=== PATIENT | female | born 1980 | race Caucasian/White ===

== ENCOUNTER 2020-05-01 10:41 | Outpatient (CLI) | payer OTHER, SELFPAY ==
[2020-05-01 11:56] LABS: Thyroid Stimulating Hormone 1.77 uIU/mL (0.36-3.74)
[2020-05-04 05:26] LABS: Thyroglobulin 5.1 ng/mL (2.8-40.9); Thyroglobulin Antibodies 80 IU/mL (<=1)
== END 2020-05-01 10:42 | disposition home or self-care (01) ==
LOC: CHSLAB 10:44
PROVIDERS: PCP Nurse Practitioner Family; Visit Provider Nurse Practitioner Family
DX: R76.8 Other specified abnormal immunological findings in serum (principal)
CPT/HCPCS: 36415; 84432; 84443; 86800

== ENCOUNTER 2020-05-17 11:23 | Outpatient (CLI) | payer OTHER, SELFPAY ==
--- NOTE | ~2020-05-17 | XR_ITS ---
EXAMINATION: XR shoulder RT min 2V EXAM DATE: 05/17/2020 12:03 INDICATION: No known recent injury provided at this time. Pain of the right shoulder. TECHNIQUE: The following right shoulder projections obtained: frontal projection with internal rotati on, frontal projection with external rotation, Grashey, and scapular Y view (4+ views). There is no prior study for comparison. FINDINGS: No evidence of right shoulder rotator cuff calcific tendinosis. Unremarkable right lakeisha ohumeral and acromioclavicular joints. There are no acute fractures or dislocations identified. Ther e is no subcutaneous gas. The soft tissue is unremarkable. There are no radiopaque foreign bodies. IMPRESSION: 1. Unremarkable right shoulder exam. Reviewed, dictated and finalized at location B.
== END 2020-05-17 11:24 | disposition home or self-care (01) ==
LOC: CHSIMG 11:27
PROVIDERS: PCP Nurse Practitioner Family; Visit Provider Nurse Practitioner Family
DX: M25.511 Pain in right shoulder (principal)
CPT/HCPCS: 73030

== ENCOUNTER 2020-05-22 15:58 | Outpatient (RCR) | payer OTHER, SELFPAY ==
--- NOTE | 2020-05-30 07:13 | PTOPEVAL ---
Thank you for referring Justyna Chase to [facility]. Please review, sign, date and return this plan of care CAROLYN. I agree with and certify that the following plan of care is medically necessary. Referring Physician Date Admitting Provider: Attending Provider: Chiara Fisher NP Referring Provider: GELA Outpatient Evaluation Start: 05/22/20 16:00 Freq: Status: Active Protocol: Document 05/22/20 16:00 J (Rec: 05/22/20 16:17 [id number]) Therapy Assessment Status Assessment Status Assessment Status Evaluation Evaluation Information Problem Diagnosis R shoulder pain Onset 05/17/20 Additional Evaluation Detail quick dash = 43% functionally declined Subjective Information patient reports she has been Query Text:As Reported By Patient/ having pain in the R shoulder Family and radiation of pain down the arm into the elbow for about 8 weeks. she reports no injury . she reports the pain will come and go. she reports she is L handed. 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 patient reports she has some radiation of pain to the middle finger ocassionally. she reports the pain/radiation is random. Prior Level of Function Comments Additional Prior Level of Function patient reports she is having Comments difficulty sleeping due to the pain/radiation. she reports she is pushing thorugh her daily activities. Pain Assessment Timing of Pain Assessment Timing of Pain Assessment Assessment Pain Scale Pain Scale Used Numeric (1 - 10) Self Report Pain Assessment Right Shoulder(s) Reported Pain Level 0 Pain Description Radiating,Sharp,Shooting Pain Radiation Right Elbow Radicular Pain Location R hand, long finger Pain Frequency Acute,Intermittent Lowest Pain Intensity 0 Greatest Pain Intensity 8 Pain Aggravating Factors Prolonged Position,Other Pain Aggravating Factors Other Pain Aggravating Factors sleeping Pain Score Pain Score 0: Self Report Cervical and Lumbar ROM Cervical ROM Cervical Flexion (0-60) 60 Query Text:Active in Degrees Cervical Extension (0-70) 40 Qu
--- NOTE | 2020-06-19 17:19 | PCPTNOTE ---
06/19/20-pt cancelled apt today secondary to migraine-HM
--- NOTE | 2020-07-16 16:21 | PCPTNOTE ---
07/16/20 - patient has not been to therapy in several months. as of this date, patient will be DC'd from skilled PT services, and all progress towards goals will be taken from patients most recent evaluation/note. LATISHA
== END 2020-06-13 09:37 | disposition home or self-care (01) ==
LOC: CHSPT 15:58
PROVIDERS: PCP Nurse Practitioner Family; Visit Provider Nurse Practitioner Family
DX: M25.511 Pain in right shoulder (principal)
CPT/HCPCS: 97014; 97110; 97161; G0283

== ENCOUNTER 2020-06-07 09:06 | Outpatient (CLI) | payer OTHER, SELFPAY ==
[2020-06-07 09:46] LABS: Alanine Aminotransferase 21 U/L (14-59); Albumin Level 3.8 g/dL (3.4-5.0); Alkaline Phosphatase 55 U/L (46-116); Aspartate Amino Transferase 19 U/L (15-37); Bilirubin Direct 0.1 mg/dL (0-0.2); Bilirubin,Total 0.6 mg/dL (0.00-1.00); Total Protein 7.2 g/dL (6.4-8.2)
== END 2020-06-07 09:07 | disposition home or self-care (01) ==
LOC: CHSLAB 09:08
PROVIDERS: PCP Nurse Practitioner Family; Visit Provider Podiatrist Foot & Ankle Surgery
DX: B35.1 Tinea unguium (principal)
CPT/HCPCS: 36415; 80076

== ENCOUNTER 2020-07-18 08:38 | Outpatient (CLI) | payer OTHER, SELFPAY ==
[2020-07-18 09:37] LABS: Cholesterol 216 mg/dL (0-200); HDL Direct 46 mg/dL (40-60); LDL Cholesterol Calculated 150 mg/dL (<130); Triglycerides 101 mg/dL (0-150)
[2020-07-21 06:48] LABS: FSH 14.1 mIU/mL (***); LH 9.8 mIU/mL (***)
[2020-07-24 13:28] LABS: Vitamin D 25 Hydroxy 45 ng/mL (30-100)
[2020-07-24 18:23] LABS: Estradiol, Ultrasensitive 93 pg/mL
== END 2020-07-18 08:39 | disposition home or self-care (01) ==
LOC: CHSLAB 08:40
PROVIDERS: PCP Nurse Practitioner Family; Visit Provider Internal Medicine Endocrinology, Diabetes & Metabolism
DX: E55.9 Vitamin D deficiency, unspecified (principal); N92.1 Excessive and frequent menstruation with irregular cycle; E78.5 Hyperlipidemia, unspecified
CPT/HCPCS: 36415; 80061; 82306; 82670; 83001; 83002

== ENCOUNTER 2022-06-05 15:02 | Outpatient (CLI) | payer OTHER, SELFPAY ==
[2022-06-05 15:17] LABS: Basophils Absolute Auto 0.06 K/mm3 (0.00-0.10); Basophils Percent Auto 0.9 % (0.0-1.0); Eosinophils Absolute Auto 0.15 K/mm3 (0.02-0.50); Eosinophils Percent Auto 2.1 % (1.0-6.0); Immature Granulocyte Absolute 0.02 K/mm3 (0.00-0.00); Immature Granulocyte Percent A 0.3 % (0.0-0.0); Lymphocytes Absolute Auto 2.35 K/mm3 (1.10-4.50); Lymphocytes Percent Auto 33.5 % (18.0-42.0); Mean Corpuscular HGB Conc 33.3 g/dL (32.0-36.0); Mean Corpuscular Hemoglobin 31.9 pg (27.0-31.0); Mean Corpuscular Volume 95.6 fL (78.0-102.0); Mean Platelet Volume 9.1 fl (9.2-11.8); Monocytes Absolute Auto 0.46 K/mm3 (0.10-0.90); Monocytes Percent Auto 6.6 % (2.0-11.0); Neutrophils Percent Auto 56.6 % (50.0-70.0); Platelet Count Result 217 K/mm3 (150-420); Red Blood Count 4.08 M/mm3 (4.20-5.40); Red Cell Distribution Width 12.2 % (11.6-14.4)
[2022-06-05 15:48] LABS: Alanine Aminotransferase 21 U/L (14-59); Albumin Level 3.9 g/dL (3.4-5.0); Alkaline Phosphatase 63 U/L (46-116); Anion Gap 6 mmol/L (8-16); Aspartate Amino Transferase 13 U/L (15-37); Bilirubin,Total 0.3 mg/dL (0.00-1.00); Blood Urea Nitrogen 8 mg/dL (7-18); Calcium 8.8 mg/dL (8.5-10.1); Carbon Dioxide 30 mmol/L (21-32); Chloride 107 mmol/L (98-108); Cholesterol 218 mg/dL (0-200); Estimated Glomerular Filt Rate > 60; Glucose 87 mg/dL (70-99); HDL Direct 57 mg/dL (40-60); LDL Cholesterol Calculated 141 mg/dL (<130); Osmolality Calculated 293 mOsm/kg (285-295); Potassium 4.3 mmol/L (3.5-5.1); Sodium 143 mmol/L (136-145); Thyroid Stimulating Hormone 0.72 uIU/mL (0.36-3.74); Triglycerides 99 mg/dL (0-150)
[2022-06-10 17:45] LABS: Vitamin D 25 Hydroxy 69 ng/mL (30-100)
== END 2022-06-05 15:03 | disposition home or self-care (01) ==
LOC: CHSLAB 15:04
PROVIDERS: PCP Nurse Practitioner Family; Visit Provider Nurse Practitioner Family
DX: R79.0 Abnormal level of blood mineral (principal); E78.5 Hyperlipidemia, unspecified; R76.8 Other specified abnormal immunological findings in serum; E55.9 Vitamin D deficiency, unspecified
CPT/HCPCS: 36415; 80053; 80061; 82306; 84443; 85025

== ENCOUNTER 2022-11-21 13:11 | Emergency (ER) | payer OTHER, SELFPAY ==
[2022-11-21 13:14] VITALS: BP 119/69; PULSE 74; RESP 20; TEMP 36.7; O2SAT 100
--- NOTE | 2022-11-21 14:43 | ED.FEMALEGU ---
HPI - Female Genitourinary General Chief complaint: Urogenital-Female Stated complaint: poss UTI Time Seen by Provider: 11/21/22 14:35 Source: patient Mode of arrival: ambulatory Limitations: no limitations History of Present Illness HPI Narrative: 41 year old [facility] of UTI symptoms of fevers, low back pain, urgency for the past 3 days duration. Patient reports that she has been taking some Ibuprofen for her symptoms. Patient reports that urine has foul odor. Patient reports no vaginal drainage or itching or any concern for any exposure to STD. MD elicited complaint: dysuria Onset (ago): day(s) (3) Severity scale (1-10): 7 Vaginal discharge: none Treatment prior to arrival: NSAIDs Related Data Home Medications Medication Instructions Recorded Confirmed methylcellulose (laxative) 500 mg 500 mg PO DAILY 10/31/19 06/05/22 tablet (Citrucel) verapamil 120 mg 24 hr 120 mg PO DAILY 10/31/19 06/05/22 capsule,extended release cholecalciferol (vitamin D3) 1,250 5,000 mcg PO DAILY 05/01/20 06/05/22 mcg (50,000 unit) capsule mecobalamin (vitamin B12) 5,000 mcg PO .twice weekly 05/01/20 06/05/22 mcg disintegrating tablet rizatriptan 10 mg tablet 10 mg PO ONCE PRN 07/04/20 06/05/22 aripiprazole 2 mg tablet (Abilify) 2 mg PO DAILY 06/05/22 06/05/22 atomoxetine 40 mg capsule 40 mg PO DAILY 06/05/22 06/05/22 buspirone 15 mg tablet 15 mg PO BID 06/05/22 06/05/22 oxcarbazepine 300 mg tablet 300 mg PO BID 06/05/22 06/05/22 (Trileptal) sertraline 100 mg tablet 200 mg PO DAILY 06/05/22 06/05/22 Allergies Allergy/AdvReac Type Severity Reaction Status Date / Time bupropion AdvReac Severe NIGHT Verified 06/05/22 07:59 TERRORS vilazodone AdvReac Severe SEVERE N/V Verified 06/05/22 07:59 AND DIZZINESS stimulant medications Allergy Intermediate unknown Uncoded 06/05/22 07:59 vybrid Allergy Intermediate unkown Uncoded 06/05/22 07:59 Review of Systems Review of Systems: CONSTITUTIONAL: Reports fever, no chills, or sweats. CARDIOVASCULAR: Denies chest pain, palpitations, or edema. RESPIRATORY: Denies cough or dyspnea. GASTROINTESTINAL: Denies abdominal pain, nausea, vomiting, or diarrhea. GENITOURINARY: Reports dysuria, frequency, urgency. Denies flank pain or hematuria.reports low back pain. SKIN: Denies rash or itching. MUSCULOSKELETAL: low back pain or myalgia. Denies CVA tenderness NEUROLOGIC: Denies headache All systems reviewed & are unremarkable except as noted in HPI and below PMFSH Past Medical History Medical History Anxiety Depression Dysuria Headache, migraine Hyperlipidemia Major depression, recurrent Menometrorrhagia Migraine Obesity Overactive bladder PMDD (premenstrual dysphoric disorder) Thyroglobulin antibody positive Vitamin D deficiency Surgical History Surgical History H/O dilation and curettage History of adenoidectomy (~1991) History of appendectomy History of cholecystectomy (~1989) History of hysteroscopy (~03/2019) History of robot-assisted laparoscopic hysterectomy (10/09/21) RATLH History of tonsillectomy (~1991) History of tonsillectomy History of tubal ligation (~2015) History of tubal ligation Hx of adenoidectomy Family History Family History Other Family history of hypothyroidism Family history of kidney stones Family history of malignant neoplasm Family history of type 2 diabetes mellitus Hypertension Social History Social History Smoking status: Never smoker Alcohol intake: current Alcohol use details: INFREQUENTLY Substance use: never Substance use type: does not use 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
== END 2022-11-21 14:51 | disposition home or self-care (01) ==
PROVIDERS: Emergency Provider Registered Nurse
DX: N39.0 Urinary tract infection, site not specified (principal); E78.5 Hyperlipidemia, unspecified; E66.9 Obesity, unspecified; Z68.28 Body mass index [BMI] 28.0-28.9, adult; E55.9 Vitamin D deficiency, unspecified; F41.9 Anxiety disorder, unspecified; F32.9 Major depressive disorder, single episode, unspecified
CPT/HCPCS: 81003; 87077; 87086; 87186; 99213; G0463

== ENCOUNTER 2022-12-02 10:20 | Outpatient (CLI) | payer OTHER, SELFPAY ==
[2022-12-02 10:59] LABS: Anion Gap 6 mmol/L (8-16); Blood Urea Nitrogen 7 mg/dL (7-17); Calcium 9.2 mg/dL (8.4-10.2); Carbon Dioxide 31 mmol/L (22-30); Chloride 103 mmol/L (98-107); Estimated Glomerular Filt Rate > 60; Glucose 85 mg/dL (65-110); Sodium 140 mmol/L (137-145)
[2022-12-02 11:10] LABS: LDL Cholesterol Direct 134 mg/dL
[2022-12-02 11:42] LABS: Free T4 Free Thyroxine 0.44 ng/mL (0.78-2.19)
[2022-12-06 06:12] LABS: Thyroid Peroxidase Antibodies 3 IU/mL (<9)
[2022-12-07 18:54] LABS: Triiodothyronine T3 Free 3.3 pg/mL (2.3-4.2)
== END 2022-12-02 10:21 | disposition home or self-care (01) ==
LOC: ANHLAB 10:22
PROVIDERS: PCP Family Medicine; Visit Provider Internal Medicine Endocrinology, Diabetes & Metabolism
DX: R76.8 Other specified abnormal immunological findings in serum (principal); E04.9 Nontoxic goiter, unspecified; E55.9 Vitamin D deficiency, unspecified; E78.5 Hyperlipidemia, unspecified
CPT/HCPCS: 36415; 80048; 82306; 83721; 84439; 84443; 84481; 86376

== ENCOUNTER 2023-02-08 08:13 | Outpatient (CLI) | payer OTHER, SELFPAY ==
[2023-02-08 09:21] LABS: Free T3 2.05 pg/mL (2.18-3.98); Free T4 Free Thyroxine 0.63 ng/dL (0.76-1.46); Thyroid Stimulating Hormone 0.89 uIU/mL (0.36-3.74)
== END 2023-02-08 08:14 | disposition home or self-care (01) ==
LOC: CHSLAB 08:14
PROVIDERS: PCP Family Medicine; Visit Provider Internal Medicine Endocrinology, Diabetes & Metabolism
DX: E04.9 Nontoxic goiter, unspecified (principal); R76.8 Other specified abnormal immunological findings in serum
CPT/HCPCS: 36415; 84439; 84443; 84481

== ENCOUNTER 2023-03-11 08:23 | Outpatient (CLI) | payer OTHER, SELFPAY ==
[2023-03-11 09:13] LABS: Free T4 Free Thyroxine 0.89 ng/dL (0.76-1.46); Thyroid Stimulating Hormone 1.06 uIU/mL (0.36-3.74)
== END 2023-03-11 08:24 | disposition home or self-care (01) ==
LOC: CHSLAB 08:25
PROVIDERS: PCP Family Medicine; Visit Provider Internal Medicine Endocrinology, Diabetes & Metabolism
DX: R79.89 Other specified abnormal findings of blood chemistry (principal); R76.8 Other specified abnormal immunological findings in serum
CPT/HCPCS: 36415; 84439; 84443

== ENCOUNTER 2023-04-01 11:39 | Outpatient (NON) | payer OTHER, SELFPAY | END 2023-04-01 11:40 | disposition home or self-care (01) | LOC: CHSLAB 11:40 | PROVIDERS: Visit Provider Nurse Practitioner Family | DX: D22.5 Melanocytic nevi of trunk (principal) | CPT/HCPCS: 88305 ==

== ENCOUNTER 2023-11-08 09:38 | Outpatient (CLI) | payer OTHER, SELFPAY ==
[2023-11-08 11:06] LABS: Free T4 Free Thyroxine 0.75 ng/dL (0.76-1.46); Iron 63 ug/dL (50-170); Magnesium 1.9 mg/dL (1.8-2.4); Thyroid Stimulating Hormone 1.46 uIU/mL (0.36-3.74); Vitamin B12 442 pg/mL (193-986)
[2023-11-11 10:43] LABS: Vitamin D 25 Hydroxy 61 ng/mL (30-100)
== END 2023-11-08 09:39 | disposition home or self-care (01) ==
LOC: CHSLAB 09:39
PROVIDERS: PCP Nurse Practitioner Family; Visit Provider Nurse Practitioner Family
DX: E55.9 Vitamin D deficiency, unspecified (principal); R79.0 Abnormal level of blood mineral; D64.9 Anemia, unspecified; M79.669 Pain in unspecified lower leg; E53.8 Deficiency of other specified B group vitamins; E03.9 Hypothyroidism, unspecified
CPT/HCPCS: 36415; 82306; 82607; 83540; 83735; 84439; 84443

== ENCOUNTER 2024-03-30 14:52 | Outpatient (CLI) | payer OTHER, SELFPAY ==
--- NOTE | 2024-03-30 15:12 | ECG_ITS ---
SEE SCANNED COPY FOR CONFIRMED REPORT MTDD
[2024-03-30 15:13] LABS: Basophils Absolute Auto 0.05 K/mm3 (0.00-0.10); Basophils Percent Auto 0.7 % (0.0-1.0); Eosinophils Absolute Auto 0.17 K/mm3 (0.02-0.50); Eosinophils Percent Auto 2.4 % (1.0-6.0); Hematocrit 39.7 % (35.0-49.0); Hemoglobin 13.5 g/dL (12.0-15.0); Immature Granulocyte Absolute 0.02 K/mm3 (0.00-0.00); Immature Granulocyte Percent A 0.3 % (0.0-0.0); Lymphocytes Absolute Auto 2.68 K/mm3 (1.10-4.50); Lymphocytes Percent Auto 37.3 % (18.0-42.0); Mean Corpuscular Hemoglobin 30.8 pg (27.0-31.0); Mean Corpuscular Volume 90.6 fL (78.0-102.0); Mean Platelet Volume 8.8 fl (9.2-11.8); Monocytes Absolute Auto 0.43 K/mm3 (0.10-0.90); Neutrophils Absolute Auto 3.83 K/mm3 (1.70-7.20); Neutrophils Percent Auto 53.3 % (50.0-70.0); Platelet Count Result 230 K/mm3 (150-420); Red Blood Count 4.38 M/mm3 (4.20-5.40); Red Cell Distribution Width 11.9 % (11.6-14.4); White Blood Count 7.2 K/mm3 (4.8-10.8)
[2024-03-30 16:04] LABS: Sodium 143 mmol/L (136-145)
[2024-03-30 16:05] LABS: Alanine Aminotransferase 31 U/L (14-59); Alkaline Phosphatase 87 U/L (46-116); Anion Gap 7 mmol/L (4-12); Aspartate Amino Transferase 22 U/L (15-37); Bilirubin,Total 0.6 mg/dL (0.00-1.00); Blood Urea Nitrogen 8 mg/dL (7-18); Calcium 9.2 mg/dL (8.5-10.1); Carbon Dioxide 32 mmol/L (21-32); Chloride 104 mmol/L (98-108); Estimated Glomerular Filt Rate > 60; Ferritin 57 ng/mL (8-252); Free T4 Free Thyroxine 0.87 ng/dL (0.76-1.46); Glucose 90 mg/dL (70-99); Iron 78 ug/dL (50-170); Osmolality Calculated 294 mOsm/kg (285-295); Thyroid Stimulating Hormone 2.16 uIU/mL (0.36-3.74); Total Protein 7.3 g/dL (6.4-8.2)
[2024-04-01 03:23] LABS: Vitamin D 25 Hydroxy 71 ng/mL (30-100)
== END 2024-03-30 14:53 | disposition home or self-care (01) ==
PROVIDERS: PCP Nurse Practitioner Family; Visit Provider Nurse Practitioner Family
DX: E55.9 Vitamin D deficiency, unspecified (principal); R79.0 Abnormal level of blood mineral; D64.9 Anemia, unspecified; R00.0 Tachycardia, unspecified; Z79.899 Other long term (current) drug therapy
CPT/HCPCS: 36415; 80053; 82306; 82728; 83540; 83735; 84439; 84443; 85025; 93005

== ENCOUNTER 2024-04-04 13:59 | Outpatient (CLI) | payer OTHER, SELFPAY ==
--- NOTE | 2024-04-10 07:51 | WPDHOLTEREM ---
Holter/Event Monitor Holter/Event Monitor Date of procedure: 04/04/24 Holter/Event Procedure: 48 Hr Holter Monitor Indications: Tachycardia Conclusion: 1. 48 hour holter monitor on 04/04/24. 2. Underlying rhythm is sinus rhythm. HR range 55-141 bpm; average HR 83 bpm. HR at 141 bpm was at 08:10. 3. There are 5 premature supraventricular complexes. No supraventricular tachycardia. 4. There are 3 premature ventricular complexes. No ventricular tachycardia. 5. No sinoatrial or atrioventricular blocks. No significant pauses greater than 2 seconds. 6. Patient reports symptoms of heart pounding, heart racing, which demonstrate sinus rhythm, HR range 71-98 bpm.
== END 2024-04-04 14:00 | disposition home or self-care (01) ==
LOC: CHSCARD 14:00
PROVIDERS: PCP Nurse Practitioner Family; Visit Provider Nurse Practitioner Family
DX: R00.0 Tachycardia, unspecified (principal)
CPT/HCPCS: 93225; 93226

== ENCOUNTER 2024-05-10 07:23 | Day surgery (SDC) | payer OTHER, SELFPAY ==
[2024-04-10 08:26] VITALS: BMI 30.9
[2024-05-03 11:22] VITALS: BMI 29.8
[2024-05-10 08:47] VITALS: BP 106/73; PULSE 70; RESP 16; TEMP 36.6; O2SAT 99
[2024-05-10] MEDS: LACTATED RINGERS 1,000 ML 150 ML IV CONT (08:48)
--- NOTE | 2024-05-10 09:17 | WPDANESEPPF ---
Anes - Initial Pre Proc Eval Procedure: Operation Date: 05/10/24 10:00 Proposed Procedures p Esophagogastroduodenoscopy - Marek Michele MD Date/Time: 05/10/24 09:17 Surgeon: Marek Michele MD Pre Op Diagnosis: GERD w/o esophagitis Patient Data Age: 43 Gender: F Height: 1.7 m Weight: 90.7 kg Last Vital Signs Temp 36.6 C 05/10/24 08:47 Pulse 70 05/10/24 08:47 Resp 16 05/10/24 08:47 BP 106/73 05/10/24 08:47 Pulse Ox 99 05/10/24 08:47 O2 Del Method Room Air 05/10/24 08:47 Allergies Allergy/AdvReac Type Severity Reaction Status Date / Time benzonatate Allergy Mild Cough Verified 05/10/24 08:45 [From Rola Curtis] bupropion AdvReac Severe NIGHT Verified 05/10/24 08:45 TERRORS vilazodone AdvReac Severe SEVERE N/V Verified 05/10/24 08:45 AND DIZZINESS stimulant medications Allergy Intermediate unknown Uncoded 05/10/24 08:45 vybrid Allergy Intermediate unkown Uncoded 05/10/24 08:45 Home Medications Medication Instructions Recorded Confirmed Type methylcellulose (laxative) 500 mg 500 mg PO DAILY 10/31/19 05/10/24 History tablet (Citrucel) verapamil 120 mg 24 hr 120 mg PO DAILY 10/31/19 05/10/24 History capsule,extended release mecobalamin (vitamin B12) 5,000 5,000 mcg PO .twice weekly 05/01/20 05/10/24 History mcg disintegrating tablet cholecalciferol (vitamin D3) 125 125 mcg PO DAILY 12/02/22 05/10/24 History mcg (5,000 unit) capsule buspirone 30 mg tablet 30 mg PO BID 03/30/24 05/10/24 History Lactobacillus 1 cap PO DAILY 05/03/24 05/10/24 History acidophilus-Bifidobac.animalis 2.5 billion cell capsule (Daily Probiotic) oxybutynin chloride 10 mg 10 mg PO DAILY 05/03/24 05/10/24 History tablet,extended release 24 hr pantoprazole 40 mg tablet,delayed 40 mg PO HS 05/03/24 05/10/24 History release sertraline 100 mg tablet 100 mg PO DAILY 05/03/24 05/10/24 History Patient hx anesthesia problems: none Family hx anesthesia problems: none Results Review: All pre-operative results and documents have been reviewed as part of the pre-operative evaluation. [facility] Past Medical History Medical History Anxiety Depression Dysuria GERD (gastroesophageal reflux disease) Headache, migraine Hyperlipidemia Major depression, recurrent Menometrorrhagia Migraine Obesity Overactive bladder PMDD (premenstrual dysphoric disorder) Screening mammogram, encounter for Thyroglobulin antibody positive Vitamin D deficiency Surgical History Surgical History H/O dilation and curettage History of adenoidectomy (~1991) History of appendectomy History of cholecystectomy (~1989) History of hysteroscopy (~03/2019) History of robot-assisted laparoscopic hysterectomy (10/09/21) RATLH History of tonsillectomy (~1991) History of tonsillectomy History of tubal ligation (~2015) History of tubal ligation Hx of adenoidectomy Family History Family History Other Family history of hypothyroidism Family history of kidney stones Family history of malignant neoplasm Family history of type 2 diabetes mellitus Hypertension Social History Social History Smoking status: Current every day smoker Tobacco type: e-cigarettes/vaping Second hand tobacco smoke exposure: No Alcohol intake: current Drinks per week: 2 Alcohol use details: INFREQUENTLY Substance use: current Substance use type: marijuana Other substance usage details: 6 x a week Last use: Nightly Do You Feel Safe in your Home?: Yes Lack of Transportation: No Lack of Food: Never True Current Housing: I Have Housing Concerned About Future Housing: No Difficulty Paying Gas/Electric Bills: No Difficulty Paying for Meds: No Currently Unemployed:
--- NOTE | 2024-05-10 09:23 | PM.HPGS ---
History of Present Illness History of Present Illness Consent: Risks, benefits, and alternatives have been discussed and questions answered. Patient agrees to proceed with procedure. Chief complaint: GERD w/o esophagitis Narrative: Justyna Chase is a 43 year old female referred for EGD. Patient has a long history of heartburn. For the last 9 months has had regurgitation with substernal burning and discomfort. This improves when she takes pantoprazole. It turns when she discontinues the medication. Patient is denies any bleeding. She has had no weight loss. Patient denies any bleeding.. Family history is noncontributory. Review of Systems Review of Systems: All systems reviewed & are unremarkable except as noted in HPI and below PMFSH Past Medical History Medical History Anxiety Depression Dysuria GERD (gastroesophageal reflux disease) Headache, migraine Hyperlipidemia Major depression, recurrent Menometrorrhagia Migraine Obesity Overactive bladder PMDD (premenstrual dysphoric disorder) Screening mammogram, encounter for Thyroglobulin antibody positive Vitamin D deficiency Surgical History Surgical History H/O dilation and curettage History of adenoidectomy (~1991) History of appendectomy History of cholecystectomy (~1989) History of hysteroscopy (~03/2019) History of robot-assisted laparoscopic hysterectomy (10/09/21) RATLH History of tonsillectomy (~1991) History of tonsillectomy History of tubal ligation (~2015) History of tubal ligation Hx of adenoidectomy Family History Family History Other Family history of hypothyroidism Family history of kidney stones Family history of malignant neoplasm Family history of type 2 diabetes mellitus Hypertension Social History Social History Smoking status: Current every day smoker Tobacco type: e-cigarettes/vaping Second hand tobacco smoke exposure: No Alcohol intake: current Drinks per week: 2 Alcohol use details: INFREQUENTLY Substance use: current Substance use type: marijuana Other substance usage details: 6 x a week Last use: Nightly Do You Feel Safe in your Home?: Yes Lack of Transportation: No Lack of Food: Never True Current Housing: I Have Housing Concerned About Future Housing: No Difficulty Paying Gas/Electric Bills: No Difficulty Paying for Meds: No Currently Unemployed: No Education: Master's Degree or Higher Difficulty w/ Childcare or Family Care: No Living arrangements: with family Additional living arrangements comments: Occupation/Education: occupation Additional occupation/education comments: [employer] Gender identity (if verbalized by the patient): Female Sexual Orientation (if Verbalized by the Patient): Straight or Heterosexual Spiritual care concerns: No Meds Home Medications and Allergies Home Medications Medication Instructions Recorded Confirmed Type methylcellulose (laxative) 500 mg 500 mg PO DAILY 10/31/19 05/10/24 History tablet (Citrucel) verapamil 120 mg 24 hr 120 mg PO DAILY 10/31/19 05/10/24 History capsule,extended release mecobalamin (vitamin B12) 5,000 5,000 mcg PO .twice weekly 05/01/20 05/10/24 History mcg disintegrating tablet cholecalciferol (vitamin D3) 125 125 mcg PO DAILY 12/02/22 05/10/24 History mcg (5,000 unit) capsule buspirone 30 mg tablet 30 mg PO BID 03/30/24 05/10/24 History Lactobacillus 1 cap PO DAILY 05/03/24 05/10/24 History acidophilus-Bifidobac.animalis 2.5 billion cell capsule (Daily Probiotic) oxybutynin chloride 10 mg 10 mg PO DAILY 05/03/24 05/10/24 History tablet,extended release 24 hr pantoprazole 40 mg tablet,delayed 40 mg PO HS 05/03/24 05/10/24 History release
[2024-05-10 10:20] VITALS: BP 92/58; PULSE 67; RESP 14; O2SAT 99
[2024-05-10 10:30] VITALS: BP 92/66; PULSE 77; RESP 16; O2SAT 99
--- NOTE | 2024-05-10 10:35 | WPDANESPN ---
Anes - Prog Note Post-Op Date/Time: 05/10/24 10:35 Cardiovascular status: normal Respiratory status: normal Airway patency: baseline Mental status: baseline Post-Op hydration status: normal Vital Signs: Last Vital Signs Temp 36.6 C 05/10/24 08:47 Pulse 77 05/10/24 10:30 Resp 16 05/10/24 10:30 BP 92/66 L 05/10/24 10:30 Pulse Ox 99 05/10/24 10:30 O2 Del Method Room Air 05/10/24 10:30 Pain Score (VAS): 0/10 I/O: Intake & Output 05/09/24 05/10/24 05/10/24 23:59 07:59 15:59 Intake Total 300 Balance 300 Patient Feedback: Patient satisfied with anesthetic care.
[2024-05-10 10:40] VITALS: BP 95/68; PULSE 65; RESP 16; O2SAT 100
== END 2024-05-10 10:52 | disposition home or self-care (01) ==
PROVIDERS: PCP Nurse Practitioner Family; Visit Provider Internal Medicine Gastroenterology
PROC: 0DJ08ZZ Inspection of Upper Intestinal Tract, Via Natural or Artificial Opening Endoscopic (ICD-10-PCS; CPT 43235; principal; 2024-05-10 10:00)
DX: K21.9 Gastro-esophageal reflux disease without esophagitis (principal)
CPT/HCPCS: 43239

== ENCOUNTER 2024-06-12 12:31 | Outpatient (CLI) | payer OTHER, SELFPAY ==
--- NOTE | ~2024-06-12 | MM_ITS ---
EXAMINATION: MM screening lelia BI w eric HISTORY: Screening TECHNIQUE: Craniocaudal and mediolateral oblique 3-D tomosynthesis images were obtained and synthetic 2-D images were generated. CAD analysis was submitted and interpreted. COMPARISON: No prior mammogram is available for comparison at this institution. BREAST PARENCHYMAL COMPOSITION: Dense: The breasts are extremely dense, which lowers the sensitivity of mammography. FINDINGS: There is no evidence of suspicious mass, calcification, or architectural distortion to sugg est malignancy in either breast. There has been no suspicious interval change. IMPRESSION: 1. No mammographic evidence of malignancy. 2. Recommend routine screening mammography in one year. BI-RADS Category 1: Negative Reviewed, dictated and finalized at location B.
== END 2024-06-12 12:32 ==
LOC: MICIMG 12:32
PROVIDERS: PCP Obstetrics & Gynecology; Visit Provider Obstetrics & Gynecology
DX: Z12.31 Encounter for screening mammogram for malignant neoplasm of breast (principal)
CPT/HCPCS: 77063; 77067

== ENCOUNTER 2024-06-26 02:57 | Emergency (ER) | payer OTHER, SELFPAY ==
--- NOTE | ~2024-06-26 | CT_ITS ---
Non-contrast CT scan of the Abdomen and Pelvis Clinical indication: Bilateral flank pain Technique: 2.5 mm axial scans were obtained through the abdomen and pelvis without intravenous or or al contrast. Dose reduction technique was used on this scan by utilizing automated exposure control a nd iterative reconstruction technique. The dose-length product (DLP) was 679.03 mGy-cm. Findings: Images through the lung bases reveal minimal pleural fluid bilaterally. There is no evidence of renal or ureteral calculi. The kidneys and the ureters are nondilated. Possib le mild asymmetric right perinephric stranding. The liver, spleen, pancreas, gallbladder, and adrenals appear normal. There is no aortic aneurysm. There is no evidence of bowel obstruction. Images through the pelvis were performed. There is no evidence of ascites or lymphadenopathy. Urinary bladder unremarkable. No pelvic mass seen. Impression: Possible mild asymmetric right perinephric stranding. Consider recently passed stone. If there is cli nical concern for pyelonephritis, consider urinalysis and/or contrast-enhanced CT scan. Reviewed, dictated and finalized at [facility]. Impression: Possible mild asymmetric right perinephric stranding. Consider recently passed stone. If there is clinical concern for pyelonephritis, consider urinalysis and /or contrast-enhanced CT scan.
[2024-06-26 02:58] VITALS: BP 102/71; PULSE 117; RESP 18; TEMP 36.3; O2SAT 99
--- NOTE | 2024-06-26 03:13 | ED.ABDPAIN ---
HPI - Abdominal Pain General Chief Complaint: Urogenital-Female Stated Complaint: right sided flank & back pain Time Seen by Provider: 06/26/24 03:13 Source: patient Mode of arrival: ambulatory Limitations: no limitations History of Present Illness HPI narrative: Patient is a 43-year-old female with some right greater than left lower back pain with radiation to the front abdominal pain. This started yesterday. She had a similar event in the past which turned out to be a kidney infection. She has been running a fever. MD elicited complaint: abdominal pain Pertinent past history: past UTI ( Pyelonephritis) Onset (ago): day(s) (2) Pain Consistency: constant Location: RLQ, LLQ and other ( right greater than left lower back) Severity: moderate Pain scale (0-10): 5 Quality: sharp Radiation: bilateral flank Migration to: no migration Exacerbating factors: nothing Relieving factors: nothing Context: confirms history of similar episodes Associated symptoms: nausea and fever Treatments prior to arrival: NSAIDs Related Data Home Medications Medication Instructions Recorded Confirmed methylcellulose (laxative) 500 mg 500 mg PO DAILY 10/31/19 06/26/24 tablet (Citrucel) mecobalamin (vitamin B12) 5,000 5,000 mcg PO .twice weekly 05/01/20 06/26/24 mcg disintegrating tablet cholecalciferol (vitamin D3) 125 125 mcg PO DAILY 12/02/22 06/26/24 mcg (5,000 unit) capsule buspirone 30 mg tablet 30 mg PO BID 03/30/24 06/26/24 Lactobacillus 1 cap PO DAILY 05/03/24 06/26/24 acidophilus-Bifidobac.animalis 2.5 billion cell capsule (Daily Probiotic) oxybutynin chloride 10 mg 10 mg PO DAILY 05/03/24 06/26/24 tablet,extended release 24 hr sertraline 100 mg tablet 100 mg PO DAILY 05/03/24 06/26/24 famotidine 20 mg tablet 20 mg PO BID 06/26/24 06/26/24 sertraline 50 mg tablet 50 mg PO DAILY 06/26/24 06/26/24 trazodone 50 mg tablet 50 mg PO HS 06/26/24 06/26/24 verapamil 120 mg 24 hr 120 mg PO DAILY 06/26/24 06/26/24 capsule,extended release Allergies Allergy/AdvReac Type Severity Reaction Status Date / Time benzonatate Allergy Mild Cough Verified 05/10/24 08:45 [From Rola Curtis] bupropion AdvReac Severe NIGHT Verified 05/10/24 08:45 TERRORS vilazodone AdvReac Severe SEVERE N/V Verified 05/10/24 08:45 AND DIZZINESS stimulant medications Allergy Intermediate unknown Uncoded 05/10/24 08:45 vybrid Allergy Intermediate unkown Uncoded 05/10/24 08:45 Review of Systems Review of Systems: All systems reviewed & are unremarkable except as noted in HPI and below Constitutional: Constitutional: Reports no additional constitutional complaints Eyes: Eyes: Reports no additional eye complaints ENT: Reports system reviewed and no additional complaints, except as documented Cardiovascular: Cardiovascular: Reports no additional cardiovascular complaints Respiratory: Respiratory: Reports no additional respiratory complaints Gastrointestinal: Gastrointestinal: Reports no additional gastrointestinal complaints Genitourinary: Genitourinary: Reports no additional female genitourinary complaints Musculoskeletal: Musculoskeletal: Reports no additional musculoskeletal complaints Integumentary/Breasts: Skin/Breast: Reports system reviewed and no additional complaints, except as docu Neurologic: Reports system reviewed and no additional complaints, except as documented Psychiatric: Psychiatric: Reports no additional psychiatric complaints Endocrine: Endocrine: Reports no additional endocrine complaints Hematologic/Lymphatic: Hematologic/Lymphatic: Reports no additional hematologic/lymphatic complaints Allergic/Immunologic: Allergic/Immunologic: Reports no additional allergic/immunologic complaints [facility] Past Medical History Medical History Anxiety Depression Dysuria GERD (gastroesophageal reflux disease) Headache, migraine Hyperlipidemia Major
[2024-06-26 03:31] LABS: Add Urine Microscopic? YES; Bilirubin Urine Negative (Negative); Blood Urine 2+ (Negative); Color Urine Light Yellow (Yellow); Glucose Urine UA Negative (Negative); Ketones Urine Trace (Negative); Leukocyte Esterase Ur 3+ LEU/UL (Negative); Nitrate Urine Positive (Negative); Protein Urine 1+ (Negative)
[2024-06-26 03:32] LABS: Pregnancy On Board Control Positive; Urine Pregnancy Test Negative
[2024-06-26 03:39] LABS: Appearance Urine Turbid (Clear); RBC Urine 21-50 /hpf (0-2); Squamous Epithelial Cell Urine Many /hpf (Few); WBC Clumps Urine Present /hpf; WBC Urine 51-75 /hpf (0-3)
[2024-06-26 03:40] LABS: Bacteria Urine 4+ /hpf; Mucus Urine Heavy /lpf
--- NOTE | 2024-06-26 04:00 | PC.NURSE ---
Explained wait times for results to pt. Pt has no c/o at this time, lights dimmed, resting, call doyle at pt side.
[2024-06-26 04:47] LABS: Basophils Absolute Auto 0.03 K/mm3 (0.00-0.10); Basophils Percent Auto 0.3 % (0.0-1.0); Eosinophils Absolute Auto 0.03 K/mm3 (0.02-0.50); Eosinophils Percent Auto 0.3 % (1.0-6.0); Hematocrit 36.4 % (35.0-49.0); Hemoglobin 12.7 g/dL (12.0-15.0); Immature Granulocyte Absolute 0.05 K/mm3 (0.00-0.00); Immature Granulocyte Percent A 0.5 % (0.0-0.0); Lymphocytes Absolute Auto 1.19 K/mm3 (1.10-4.50); Mean Corpuscular HGB Conc 34.9 g/dL (32-36); Mean Corpuscular Hemoglobin 31.4 pg (27.0-31.0); Mean Corpuscular Volume 89.9 fL (78.0-102.0); Mean Platelet Volume 9.5 fl (9.2-11.8); Monocytes Percent Auto 8.3 % (2.0-11.0); Neutrophils Absolute Auto 8.66 K/mm3 (1.70-7.20); Neutrophils Percent Auto 79.6 % (50.0-70.0); Platelet Count Result 217 K/mm3 (150-420); Red Blood Count 4.05 M/mm3 (4.20-5.40); Red Cell Distribution Width 11.5 % (11.6-14.4); White Blood Count 10.9 K/mm3 (4.8-10.8)
[2024-06-26 05:00] VITALS: BP 110/65; PULSE 75; RESP 16; O2SAT 95
[2024-06-26 05:37] LABS: Lactic Acid Reflex 1.1 mmol/L (0.7-2.0)
[2024-06-26 05:39] LABS: Alanine Aminotransferase 13 U/L (6-35); Albumin Level 4.3 g/dL (3.5-5.1); Alkaline Phosphatase 90 U/L (38-126); Anion Gap 8 mmol/L (4-12); Aspartate Amino Transferase 27 U/L (14-36); Bilirubin,Total 0.7 mg/dL (0.2-1.3); Blood Urea Nitrogen 11 mg/dL (7-17); Carbon Dioxide 30 mmol/L (22-30); Chloride 98 mmol/L (98-107); Estimated CRCL calculation 91 ml/min; Estimated Glomerular Filt Rate > 60; Glucose 105 mg/dL (65-110); Lipase 69 U/L (23-300); Osmolality Calculated 281 mOsm/kg (285-295); Potassium 3.4 mmol/L (3.4-5.0); Sodium 136 mmol/L (137-145)
[2024-06-26] MEDS: cefTRIAXone 1 GM, LIDOCAINE HCL 1% LOCAL INJ 2.1 ML IM (05:58)
[2024-06-26] MEDS: ACETAMINOPHEN 500 MG TABLET 1000 MG PO (06:02)
[2024-06-26 06:24] VITALS: BP 99/64; PULSE 85; RESP 18; TEMP 37.2; O2SAT 96
--- NOTE | 2024-06-28 17:04 | PC.NURSE ---
PRELIMINARY URINE CULTURE RESULTS: GRAM NEGATIVE BACILLI ISOLATED, GREATER THAN 100,000 CFU/ML. PER DR LAWSON, TO AWAIT C&S.
--- NOTE | 2024-06-29 12:21 | PC.NURSE ---
Final urine culture report, Escherichia coli, Patient discharged on Levofloxacin, culture susceptible. no further action or change in medication needed at this time Per. Dr. Tran.
--- NOTE | 2024-07-02 13:43 | PC.NURSE ---
final blood cultures x2 reviewed. no growth after 5 days. no change in plan of care
== END 2024-06-26 06:24 | disposition home or self-care (01) ==
PROVIDERS: Emergency Provider Emergency Medicine; PCP Nurse Practitioner Family
DX: N12 Tubulo-interstitial nephritis, not specified as acute or chronic (principal); E78.5 Hyperlipidemia, unspecified; F17.290 Nicotine dependence, other tobacco product, uncomplicated; Z79.899 Other long term (current) drug therapy
CPT/HCPCS: 36415; 74176; 80053; 81001; 81025; 83605; 83690; 85025; 87040; 87077; 87086; 87088; 87186; 96372; 99284; J0696

== ENCOUNTER 2024-08-03 15:03 | Outpatient (NON) | payer OTHER, SELFPAY ==
[2024-08-03 15:43] LABS: Appearance Urine Sl Cloudy (Clear); Blood Urine 1+ (Negative); Color Urine Yellow (Yellow); Glucose Urine UA Negative (Negative); Ketones Urine Negative (Negative); Nitrate Urine Positive (Negative); Protein Urine Negative (Negative)
[2024-08-03 15:44] LABS: Add Urine Microscopic? YES; Bacteria Urine 4+ /hpf; Bilirubin Urine Negative (Negative); Leukocyte Esterase Ur 2+ LEU/UL (Negative); RBC Urine 0-2 /hpf (0-2); Squamous Epithelial Cell Urine Rare /hpf (Few); Urobilinogen Urine Negative mg/dL (0.2-1.0)
== END 2024-08-03 15:04 | disposition home or self-care (01) ==
LOC: CHSLAB 15:05
PROVIDERS: PCP Nurse Practitioner Family; Visit Provider Nurse Practitioner Family
DX: Z87.898 Personal history of other specified conditions (principal)
CPT/HCPCS: 81001; 87077; 87086; 87088; 87186

== ENCOUNTER 2025-08-17 08:30 | Outpatient (CLI) | payer OTHER, SELFPAY ==
--- OUTSIDE RECORDS SUMMARY | 2025-08-17 08:33 | XMS_ITS | Clinical Summary ---
Author Organization [facility] Address [address] [place] [address] Phone Care Team Providers Care Patrol Driver Name Role Phone Chiara Fisher SANG Primary Care Provider [phone] Allergies No known active allergies Medications Sertraline HCl (ZOLOFT PO) Take by mouth. Active oxybutynin (DITROPAN-XL) 10 MG TABLET SR 24 HR Take 10 mg by mouth daily. Active VERAPAMIL HCL PO Take by mouth. Active OXCARBAZEPINE PO Take by mouth. Active ondansetron (ZOFRAN-ODT) 4 MG TABLET DISPERSIBLEIndic ations:Nausea Take 1 Tab by mouth every 8 hours as needed for Nausea - 1st line. 10 Tab 10/18/2020 Active promethazine-dex tromethorphan (PROMETHAZINE-DM ) 6.25-15 MG/5ML SyrupIndications :Cough Take 5 mL by mouth every 4 hours as needed for Cough. 240 mL 10/18/2020 Active Active Problems No known active problems Social History Tobacco Use Types Packs/Day Years Used Date Smoking Tobacco: Never Smokeless Tobacco: Never Comments No Sex and Gender Information Value Date Recorded Sex Assigned at Not on file Legal Sex Female 9:11 AM [employer] Gender Identity Not on file Sexual Orientation Not on file Last Filed Vital Signs Vital Sign Reading Time Taken Comments Blood Pressure 124/80 10/18/2020 10:43 AM [employer] Pulse 89 10/18/2020 10:43 AM [employer] Temperature 37.3 C (99.1 F) 10/18/2020 10:43 AM [employer] Respiratory Rate 16 10/18/2020 10:43 AM [employer] WORK[employer] Oxygen Saturation 98% 10/18/2020 10:43 AM [employer] Inhaled Oxygen Concentration - - Weight 95.3 kg (210 lb) 10/18/2020 10:43 AM [employer] Height - - Body Mass Index - - Plan of Treatment Health Maintenance Due Date Last Done Comments Hepatitis C Virus (HCV) Screening 1981 Hepatitis B Immunization (1 of 3 - 19+ 3-dose series) 2000 Pap Smear 2002 Human Papillomavirus (HPV) Immunization (1 - 3-dose SCDM series) 2008 Cervical Cancer Screening (CCS) 2011 HPV/Cotest 2011 Influenza Immunization (#1) 2025 SARS-COV-2 Immunization (3 - 2024- season) 2025 11/05/2021, 10/14/2021 Respiratory Syncytial Virus (RSV) Immunization (Adult) (1 - 1-dose 75+ series) 2056 DTaP/Tdap/Td Immunization Discontinued 2008, 02/26/1987 TdaP Immunization Completed 12/18/2008 Meningococcal Immunization (ACWY) Aged Out No longer eligible based on patient's age to complete this topic Pneumococcal Immunization Combined Aged Out No longer eligible based on patient's age to complete this topic Rotavirus Immunization Aged Out No lo nger eligible based on patient's age to complete this topic Insurance [employer] Care Teams Patrol Driver Relationship Specialty Start Date End Date Chiara Fisher APRN [address] [place] [address] PCP - General Family Medicine 10/18/20
[2025-08-17 08:50] LABS: Hematocrit 40.3 % (37.0-47.0); Hemoglobin 13.3 g/dL (12.0-15.0); Immature Granulocyte Percent A 0.3 % (0-0.5); Lymphocytes Absolute Auto 1.89 K/mm3 (0.9-3.2); Mean Corpuscular HGB Conc 33.0 g/dl (32-36); Mean Corpuscular Hemoglobin 30.6 pg (26-34); Mean Corpuscular Volume 92.6 fl (80-100); Nucleated Red Blood Cells Absolute Auto 0.000 K/mm3 (0.0-0.012); Nucleated Red Blood Cells Perc 0.0 % (0.0-0.2); Platelet Count Result 216 k/mm3 (150-375); Red Blood Count 4.35 M/mm3 (4.2-5.4); White Blood Count 6.0 K/mm3 (4.5-10.0)
[2025-08-17 09:14] LABS: Iron 77 ug/dL (37-170)
[2025-08-17 09:19] LABS: Alanine Aminotransferase 35 U/L (6-35); Albumin Level 4.4 g/dL (3.5-5.1); Alkaline Phosphatase 87 U/L (38-126); Anion Gap 7 mmol/L (4-12); Aspartate Amino Transferase 47 U/L (14-36); Bilirubin,Total 0.5 mg/dL (0.2-1.3); Blood Urea Nitrogen 6 mg/dL (7-17); Calcium 9.6 mg/dL (8.4-10.2); Carbon Dioxide 29 mmol/L (22-30); Chloride 103 mmol/L (98-107); Cholesterol 242 mg/dL (0-200); Estimated Glomerular Filt Rate > 60; Glucose 104 mg/dL (65-110); HDL Direct 46 mg/dL; Potassium 4.4 mmol/L (3.4-5.0); Sodium 139 mmol/L (137-145); Total Protein 7.9 g/dL (6.3-8.2); Triglycerides 126 mg/dL (<150)
[2025-08-17 09:24] LABS: Percent Iron Saturation 31 % (20-50)
[2025-08-17 09:32] LABS: Free T4 Free Thyroxine 1.00 ng/dL (0.78-2.19)
[2025-08-17 09:51] LABS: Ferritin 67.40 ng/mL (6.24-137)
[2025-08-17 09:53] LABS: Thyroid Stimulating Hormone 1.380 uIU/mL (0.465-4.680); Total Triiodothyronine (T3) 3.31 NG/ML (0.82-1.58)
== END 2025-08-17 08:31 | disposition home or self-care (01) ==
LOC: ANHLAB 08:31
PROVIDERS: PCP Nurse Practitioner Family; Visit Provider Nurse Practitioner Family
DX: Z13.6 Encounter for screening for cardiovascular disorders (principal); E03.9 Hypothyroidism, unspecified; R79.89 Other specified abnormal findings of blood chemistry; R79.0 Abnormal level of blood mineral; E55.9 Vitamin D deficiency, unspecified; D64.9 Anemia, unspecified; E78.5 Hyperlipidemia, unspecified; Z79.899 Other long term (current) drug therapy
CPT/HCPCS: 36415; 80053; 80061; 82306; 82728; 83540; 83550; 84439; 84443; 84480; 85025